=== PATIENT | male | born 1950 | race Caucasian/White ===

== ENCOUNTER → 2017-03-15 | Outpatient (CLI) | payer MEDICARE, BC ==
[2017-03-15 09:25] LABS: Basophils % (A) 0 %; CH 33.4; CHCM 36.4; Eosinophils # (A) 0.2 k/uL (0-0.7); Eosinophils % (A) 2 %; HCT 42.9 % (39.0-53.0); HDW 2.87; Luc # (Auto) 0.12; Luc % (Auto) 2; Lymphocytes # (A) 1.2 k/uL (1.0-4.8); Lymphocytes % (A) 18 %; MCH 32.2 pg (25.0-35.0); MCHC 34.9 g/dL (31.0-37.0); MCV 92.2 fL (80.0-100.0); Mean Platelet Volume 6.2; Monocytes # (A) 0.3 k/uL (0-1.0); Monocytes % (A) 4 %; Neutrophils % (A) 74 %; RBC 4.65 m/uL (4.30-5.90); RDW 12.4 % (11.5-15.5); WBC 6.8 k/uL (3.8-10.6); WBC (Perox) 7.16
[2017-03-15 09:26] LABS: Appearance,Urine Clear (Clear); Bilirubin,Urine Negative (Negative); Glucose,Urine (UA) Negative (Negative); Ketones,Urine Negative (Negative); Leukocyte Esterase,Urine Negative (Negative); Nitrite,Urine Negative (Negative); PH, Urine 5.5 (5.0-8.0); Protein,Urine Trace (Negative); Specific Gravity,Urine 1.014 (1.001-1.035); UA Billing (MACRO vs. MICRO) CHEM; Urobilinogen,Urine <2.0 mg/dL (<2.0)
[2017-03-15 11:58] LABS: ALT 78 U/L (21-72); AST 49 U/L (17-59); Alkaline Phosphatase 81 U/L (38-126); Anion Gap 12 mmol/L; Blood Urea Nitrogen 24 mg/dL (9-20); Calcium 9.5 mg/dL (8.4-10.2); Carbon Dioxide 25 mmol/L (22-30); Chloride 105 mmol/L (98-107); Cholesterol 154 mg/dL (<200); Glucose 115 mg/dL (74-99); HDL Cholesterol 24 mg/dL (40-60); Non-African American GFR(MDRD) >60 (>60 ml/min/1.73 sqM); Potassium 4.3 mmol/L (3.5-5.1); Sodium 142 mmol/L (137-145); Triglycerides 179 mg/dL (<150)
[2017-03-15 11:59] LABS: Hemoglobin A1C 5.4 % (4.2-6.1)
[2017-03-15 12:29] LABS: Prostate Specific Antigen 5.92 ng/mL (0.00-4.00)
== END | disposition home or self-care (01) ==
LOC: LABWHC1 08:06
PROVIDERS: ATTEND Family Medicine
DX: Z00.00 Encounter for general adult medical examination without abnormal findings (principal); E78.5 Hyperlipidemia, unspecified; R97.20 Elevated prostate specific antigen [PSA]
CPT/HCPCS: 36415; 80053; 80061; 81003; 83036; 84153; 85025

== ENCOUNTER → 2018-03-16 | Outpatient (CLI) | payer MEDICARE, BC ==
[2018-03-16 08:03] LABS: HCT 41.2 % (39.0-53.0); HGB 14.4 gm/dL (13.0-17.5); MCV 91.5 fL (80.0-100.0); Mean Platelet Volume 6.6; Platelet Count 213 k/uL (150-450); RBC 4.51 m/uL (4.30-5.90); RDW 12.6 % (11.5-15.5)
[2018-03-16 11:45] LABS: Albumin 4.2 g/dL (3.5-5.0); Calcium 9.3 mg/dL (8.4-10.2); Potassium 4.9 mmol/L (3.5-5.1); Total Bilirubin 0.9 mg/dL (0.2-1.3); Total Protein 6.9 g/dL (6.3-8.2)
[2018-03-16 12:14] LABS: Prostate Specific Antigen 7.56 ng/mL (0.00-4.00)
[2018-03-16 19:06] LABS: Hemoglobin A1C 5.2 % (4.0-6.0)
== END | disposition home or self-care (01) ==
LOC: LABWHC1 07:01
PROVIDERS: ATTEND Family Medicine
DX: Z00.00 Encounter for general adult medical examination without abnormal findings (principal)
CPT/HCPCS: 36415; 80053; 80061; 83036; 84153; 85027

== ENCOUNTER → 2018-03-28 | Outpatient (CLI) | payer MEDICARE, BC ==
--- NOTE | 2018-03-28 18:34 | US ---
EXAM MEASUREMENTS: RIGHT: Peak Systolic Velocity (PSV) cm/sec ----- Right CCA: 82.0 ----- Right ICA: 82.9 ----- Right ECA: 96.2 ICA/CCA ratio: 1.0 RIGHT: End Diastole cm/sec ----- Right CCA: 18.6 ----- Right ICA: 25.2 ----- Right ECA: 13.8 LEFT: Peak Systolic Velocity (PSV) cm/sec ----- Left CCA: 93.4 ----- Left ICA: 105.6 ----- Left ECA: 117.4 ICA/CCA ratio: 1.1 LEFT: End Diastole cm/sec ----- Left CCA: 26.1 ----- Left ICA: 32.7 ----- Left ECA: 9.8 VERTEBRALS (direction of flow): Right Vertebral: antegrade Left Vertebral: antegrade Criteria for Assigning % of Stenosis / Diameter reduction (Estimation based on the indirect measurements of the internal carotid artery velocities (ICA PSV). 1. Normal (no stenosis)=ICA PSV < 125 cm/s: ratio < 2.0: ICA EDV<40 cm/s. 2. Less than 50% stenosis=ICA PSV < 125 cm/s: ratio < 2.0: ICA EDV<40 cm/s. 3. 50 to 69% stenosis=ICA PSV of 125 to 230 cm/s: ration 2.0 ? 4.0: ICA EDV 40-100 cm/s. 4. Greater than 70% stenosis to near occlusion= ICA PSV > 230 cm/s: ratio > 4.0: ICA EDV > 100 cm/s. 5. Near occlusion= ICA PSV velocities may be low or undetectable: variable ratio and ICA EDV. 6. Total occlusion=unable to detect flow. PATIENT HISTORY: TIA 2 years ago with left sided weakness PREVIOUS EXAM: no TECH IMPRESSION: Mild plaque bilateral bifurcations. No evidence of significant stenosis RHYTHM: normal Impression There is antegrade flow in the vertebral arteries. The images and measurements suggest less than 25% stenosis in both internal carotid arteries.
== END | disposition home or self-care (01) ==
LOC: RADUSWWP 17:00
PROVIDERS: ATTEND Psychiatry & Neurology Neurology
DX: I65.23 Occlusion and stenosis of bilateral carotid arteries (principal); G45.9 Transient cerebral ischemic attack, unspecified
CPT/HCPCS: 93880

== ENCOUNTER → 2018-07-05 | Outpatient (CLI) | payer MEDICARE, BC | END | disposition home or self-care (01) | LOC: LABWHC1 16:02 | PROVIDERS: ATTEND Internal Medicine Interventional Cardiology | DX: R00.1 Bradycardia, unspecified (principal) | CPT/HCPCS: 36415; 84443 ==

== ENCOUNTER 2018-07-29 10:28 | Emergency (ER) | payer MEDICARE, BC ==
[2018-07-29 10:44] VITALS: TEMP 98.1
[2018-07-29] MEDS ORDERED: SODIUM CHLORIDE 0.9% 1,000 ML IV STA (10:47)
[2018-07-29 10:54] LABS: Glucose,Whole Blood 172 mg/dL (75-99)
--- NOTE | 2018-07-29 10:58 | ED ---
Neuro HPI - General Chief Complaint: Neuro Symptoms/Deficit Stated Complaint: poss stroke Time Seen by Provider: 07/29/18 10:40 Source: patient, family, RN notes reviewed Mode of arrival: wheelchair Limitations: no limitations - History of Present Illness Is the patient presenting with stroke symptoms?: Yes Initial Comments: This is a 68-year-old male with a history of TIA about 3 years ago he has had robotic prostate surgery 5 days ago who states he was having some numbness to his right pinky finger over the past 5 days but this morning was noted to have some trouble with speech his believes he has some right lip drooping and he had trouble walking with his right leg as he seemed to have some evidence of a footdrop. He does state that 3 years ago he had a TIA he believes it was left carotid artery that was involved. He has no trauma no headache no blurry vision he has some difficulty with speech no fevers chills sweats no back or abdominal pain. No other modifying factors - Related Data Home Medications: Home Medications Medication Instructions Recorded Confirmed Acetaminophen Tab [Tylenol] 650 mg PO DAILY 07/29/18 07/29/18 Aspirin [Hale Aspirin EC] 81 mg PO DAILY 07/29/18 07/29/18 Atovaquone/Proguanil HCl [Malarone 1 tab PO DAILY 07/29/18 07/29/18 250-100 mg Tablet] Clindamycin [Cleocin] 150 mg PO DAILY 07/29/18 07/29/18 Clopidogrel [Plavix] 75 mg PO DAILY 07/29/18 07/29/18 Ezetimibe [Zetia] 10 mg PO DAILY 07/29/18 07/29/18 Hydrochlorothiazide 25 mg PO DAILY 07/29/18 07/29/18 Ibuprofen [Motrin] 800 mg PO DAILY 07/29/18 07/29/18 Lisinopril 20 mg PO DAILY 07/29/18 07/29/18 Methocarbamol [Robaxin] 500 mg PO QID 07/29/18 07/29/18 Sennosides [Senokot] 8.6 mg PO DAILY 07/29/18 07/29/18 amLODIPine [Norvasc] 5 mg PO DAILY 07/29/18 07/29/18 oxyCODONE HCL [Roxicodone] 5 mg PO DAILY 07/29/18 07/29/18 Allergies/Adverse Reactions: Allergies Allergy/AdvReac Type Severity Reaction Status Date / Time No Known Allergies Allergy Verified 07/29/18 12:25 Review of Systems ROS Statement: Those systems with pertinent positive or pertinent negative responses have been documented in the HPI. ROS Other: All systems not noted in ROS Statement are negative. General Exam - General Exam Comments Initial Comments: This is a well-developed well-nourished awake alert oriented 3 male Limitations: no limitations General appearance: alert, anxious Head exam: Present: atraumatic, normocephalic, normal inspection Eye exam: Present: normal appearance, PERRL, EOMI. Absent: scleral icterus, conjunctival injection, periorbital swelling ENT exam: Present: mucous membranes moist, other (The patient does demonstrate some flattening of the right nasolabial fold compared to the left side. Forehead is spared) Neck exam: Present: normal inspection, full ROM, other (No stridor JVD or bruits ). Absent: tenderness, meningismus, lymphadenopathy Respiratory exam: Present: normal lung sounds bilaterally. Absent: respiratory distress, wheezes, rales, rhonchi, stridor Cardiovascular Exam: Present: regular rate, normal rhythm, normal heart sounds. Absent: systolic murmur, diastolic murmur, rubs, gallop, clicks GI/Abdominal exam: Present: soft, normal bowel sounds. Absent: distended, tenderness, guarding, rebound, rigid Extremities exam: Present: normal inspection, full ROM, normal capillary refill. Absent: tenderness, pedal edema, joint swelling, calf tenderness Back exam: Present: normal inspection Neurological exam: Present: alert, oriented X3, motor sensory deficit (Slight flattening of the right nasolabial fold slight amount of slurred speech no other physical findings at this time.). Absent: CN II-XII intact Psychiatric exam: Present: normal affect, normal mood Skin exam: Present: warm, dry, intact, normal color. Absent: rash Stroke MDM - Lab Data Result diagrams: 07/29/18 10:45 07/29/18 10:45 Lab Results 07/29/18 07/29/18 07/29/18 Range/Units 10:45 10:45 10:45 WBC 9.4 (3.8-10.6) k/uL RBC 4.48 (4.30-5.90) m/uL Hgb 13.8 (13.0-17.5) gm/dL Hct 42.2 (39.0-53.0) % MCV 94.3 (80.0-100.0) fL MCH 30.9 (25.0-35.0) pg MCHC 32.8 (31.0-37.0) g/dL RDW 12.4 (11.5-15.5) % Plt Count 361 (150-450) k/uL Neutrophils % 77 % Lymphocytes % 13 % Monocytes % 6 % Eosinophils % 3 % Basophils % 0 % Neutrophils # 7.2 (1.3-7.7) k/uL Lymphocytes # 1.2 (1.0-4.8) k/uL Monocytes # 0.6 (0-1.0) k/uL Eosinophils # 0.2 (0-0.7) k/uL Basophils # 0.0 (0-0.2) k/uL PT (9.0-12.0) sec INR (<1.2) APTT (22.0-30.0) sec Sodium 138 (137-145) mmol/L Potassium 4.0 (3.5-5.1) mmol/L Chloride 101 (98-107) mmol/L Carbon Dioxide 26 (22-30) mmol/L Anion Gap 11 mmol/L BUN 15 (9-20) mg/dL Creatinine 1.14 (0.66-1.25) mg/dL Est GFR (CKD-EPI)AfAm 76 (>60 ml/min/1.73 sqM) Est GFR (CKD-EPI)NonAf 66 (>60 ml/min/1.73 sqM) Glucose 184 H (74-99) mg/dL POC Glucose (mg/dL) (75-99) mg/dL POC Glu [employer] Calcium 9.7 (8.4-10.2) mg/dL Magnesium (1.6-2.3) mg/dL Total Bilirubin 1.1 (0.2-1.3) mg/dL AST 42 (17-59) U/L ALT 62 (21-72) U/L Alkaline Phosphatase 83 (38-126) U/L Total Creatine Kinase 116 (55-170) U/L CK-MB (CK-2) 1.8 (0.0-2.4) ng/mL CK-MB (CK-2) Rel Index 1.6 Troponin I <0.012 (0.000-0.034) ng/mL Total Protein 6.9 (6.3-8.2) g/dL Albumin 4.0 (3.5-5.0) g/dL 07/29/18 07/29/18 07/29/18 Range/Units 10:45 10:45 10:47 WBC (3.8-10.6) k/uL RBC (4.30-5.90) m/uL Hgb (13.0-17.5) gm/dL Hct (39.0-53.0) % MCV (80.0-100.0) fL MCH (25.0-35.0) pg MCHC (31.0-37.0) g/dL RDW (11.5-15.5) % Plt Count (150-450) k/uL Neutrophils % % Lymphocytes % % Monocytes % % Eosinophils % % Basophils % % Neutrophils # (1.3-7.7) k/uL Lymphocytes # (1.0-4.8) k/uL Monocytes # (0-1.0) k/uL Eosinophils # (0-0.7) k/uL Basophils # (0-0.2) k/uL PT 11.1 (9.0-12.0) sec INR 1.1 (<1.2) APTT 23.2 (22.0-30.0) sec Sodium (137-145) mmol/L Potassium (3.5-5.1) mmol/L Chloride (98-107) mmol/L Carbon Dioxide (22-30) mmol/L Anion Gap mmol/L BUN (9-20) mg/dL Creatinine (0.66-1.25) mg/dL Est GFR (CKD-EPI)AfAm (>60 ml/min/1.73 sqM) Est GFR (CKD-EPI)NonAf (>60 ml/min/1.73 sqM) Glucose (74-99) mg/dL POC Glucose (mg/dL) 172 H (75-99) mg/dL POC Glu [facility] [employer] [facility] Calcium (8.4-10.2) mg/dL Magnesium 2.1 (1.6-2.3) mg/dL Total Bilirubin (0.2-1.3) mg/dL AST (17-59) U/L ALT (21-72) U/L Alkaline Phosphatase (38-126) U/L Total Creatine Kinase (55-170) U/L CK-MB (CK-2) (0.0-2.4) ng/mL CK-MB (CK-2) Rel Index Troponin I (0.000-0.034) ng/mL Total Protein (6.3-8.2) g/dL Albumin (3.5-5.0) g/dL - NIH Stroke Scale 1a. Level of Consciousness: (0) alert 1b. LOC Questions: (0) answers correctly 1c. LOC Commands: (0) performs tasks correctly 2. Best Gaze: (0) normal 3. Visual: (0) no visual loss 4. Facial Palsy: (1) minor paralysis 5a. Motor Arm Left: (0) no drift 5b. Motor Arm Right: (0) no drift 6a. Motor Leg Left: (0) no drift 6b. Motor Leg Right: (0) no drift 7. Limb Ataxia: (0) absent 8. Sensory: (0) normal 9. Best Language: (0) no aphasia 10. Dysarthria: (1) mild/moderate dysarthria 11. Extinction/Inattention: (0) no abnormality - Thrombolytic Inclusion/Exclusion Thrombolytic Inclusion Criteria: Ischemic Stroke Onset< 3h Thrombolytic Contraindications: Rapidly Improving s/s - Medical Decision Making Initial CT showed no definite findings of obstruction. Patient did have recurrent symptoms however and was a candidate for TPA after discussion with several physicians hence the delay in TPA administration. Patient will be transferred to [facility]. I did discuss the findings with the patient and his family members or present. - EKG Data -: EKG Interpreted by Me EKG shows normal: sinus rhythm (Sinus rhythm a rate 73. Interval 1:30 QRS duration 84 QT since QTC 392/431 this raises be a normal looking EKG was compared with EKG done on 07/05/18 which patient brought with him.) Past Medical History Past Medical History: CVA/TIA, Hyperlipidemia, Hypertension History of Any Multi-Drug Resistant Organisms: None Reported Past Surgical History: Prostate Surgery Past Psychological History: No Psychological Hx Reported Smoking Status: Never smoker Past Alcohol Use History: None Reported Past Drug Use History: None Reported Course Vital Signs 07/29/18 07/29/18 07/29/18 10:30 10:35 10:45 Temperature 98.1 F Pulse Rate 87 88 Respiratory 18 10 L Rate Blood Pressure 199/130 169/118 O2 Sat by Pulse 98 98 98 Oximetry 07/29/18 07/29/18 07/29/18 10:50 11:06 11:15 Temperature Pulse Rate 73 73 Respiratory 80 H 20 7 L Rate Blood Pressure 181/109 169/91 168/94 O2 Sat by Pulse 97 99 99 Oximetry 07/29/18 07/29/18 07/29/18 11:30 11:45 12:00 Temperature Pulse Rate 77 74 80 Respiratory 16 14 12 Rate Blood Pressure 167/110 158/109 161/97 O2 Sat by Pulse 97 98 Oximetry 07/29/18 12:15 Temperature Pulse Rate 74 Respiratory 21 Rate Blood Pressure 169/93 O2 Sat by Pulse Oximetry - Reevaluation(s) Reevaluation #1: 07/29/18 11:30 Reevaluation the patient upon his return from CAT scan reveals improvement of the facial asymmetry and speech. Reevaluation #2: 07/29/18 11:31 I did discuss the case with Dr. Zarate. The patient is not a candidate for intervention at this time the computed tomography scan shows no obvious occlusion. Reevaluation #3: 07/29/18 12:51 Reexamination patient he had recurring symptoms which included dysarthria as well as diminished right upper extremity movement patient is dominant right handed. Additionally he has recurrent foot drop. Dr. Zarate was read consult that he did reexamine the patient. The patient is a candidate for TPA however the patient did have a surgical procedure 5 days ago at [facility]. This did require contacting the surgeons. Reevaluation #4: 07/29/18 12:51 I did discuss the case with Dr. Waterman on 2 occasions who did consult the attending covering this weekend Dr. Brantley the patient can get TPA in light of the current circumstances the patient is urine is clear no evidence of any bleeding. I did rediscuss the case with Dr. Zarate patient will be started on TPA. There is a delay in giving due to all of the extraneous issues and timing thereof. Patient will be transferred to [facility] for further evaluation. I did discuss the transfer with the ER physician who is agreed to accept the patient transfer. Critical Care Time Critical Care Time: Yes Critical Care Time: Critical care time of 49 minutes which included initial presentation with history physical labs x-rays multiple reevaluation of the patient to response to therapy and change in symptoms. Discussion with multiple physicians discussion with the receiving facility discussed with paramedics. Review of all labs and CTs and documentation of the above. Disposition Clinical Impression: Cerebrovascular accident Disposition: OTHER INSTITUTION NOT DEFINED Condition: Serious Is patient prescribed a controlled substance at d/c from ED?: No Referrals: Nonstaff,Physician [Primary Care Provider] - 1-2 days - Out of Hospital Transfer - Req. Specs Out of Hospital Transfer - Requested Specifics: Other Emergency Center
--- NOTE | 2018-07-29 11:14 | CT ---
EXAMINATION TYPE: CT brain wo con for TPA DATE OF EXAM: 07/29/2018 COMPARISON: NONE HISTORY: CODE STROKE CT DLP: 1504.7 mGycm Automated exposure control for dose reduction was used. FINDINGS: Central structures are midline. There is no evidence of hydrocephalus. No acute focal lesion, mass ef fect or midline shift is seen. I do not see evidence of intracranial blood. There is some periventric ular white matter lucency compatible with chronic white matter ischemic change. Visualized portions of the paranasal sinuses and mastoids are clear. The bony calvarium is intact. IMPRESSION: 1. NO ACUTE INTRACRANIAL ABNORMALITY. 2. MILD DEGENERATIVE CHANGE.
[2018-07-29 11:18] LABS: Calcium 9.7 mg/dL (8.4-10.2); Total Bilirubin 1.1 mg/dL (0.2-1.3); Total Protein 6.9 g/dL (6.3-8.2)
[2018-07-29 11:20] LABS: Basophils % (A) 0 %; Eosinophils # (A) 0.2 k/uL (0-0.7); Eosinophils % (A) 3 %; HCT 42.2 % (39.0-53.0); HGB 13.8 gm/dL (13.0-17.5); Lymphocytes # (A) 1.2 k/uL (1.0-4.8); Lymphocytes % (A) 13 %; MCH 30.9 pg (25.0-35.0); MCHC 32.8 g/dL (31.0-37.0); MCV 94.3 fL (80.0-100.0); Monocytes # (A) 0.6 k/uL (0-1.0); Monocytes % (A) 6 %; Neutrophils # (A) 7.2 k/uL (1.3-7.7); Neutrophils % (A) 77 %; Platelet Count 361 k/uL (150-450); RBC 4.48 m/uL (4.30-5.90); RDW 12.4 % (11.5-15.5); WBC 9.4 k/uL (3.8-10.6)
[2018-07-29 11:21] LABS: INR 1.1 (<1.2); Partial Thromboplastin Time 23.2 sec (22.0-30.0); Prothrombin Time 11.1 sec (9.0-12.0)
[2018-07-29 11:35] LABS: Creatine Kinase 116 U/L (55-170)
[2018-07-29 11:48] LABS: Creatine Kinase MB 1.8 ng/mL (0.0-2.4); Troponin I <0.012 ng/mL (0.000-0.034)
--- NOTE | 2018-07-29 12:07 | CT ---
EXAMINATION TYPE: CT angio head neck DATE OF EXAM: 07/29/2018 HISTORY: CODE STROKE COMPARISON: None. CT DLP: 386.3 mGycm. Automated Exposure Control for Dose Reduction was Utilized. TECHNIQUE: CTA scan of the neck is performed with IV Contrast, patient injected with 65 mL of Isovue 370, axial images are obtained, coronal and sagittal reformatted images are reviewed. Three-D recons tructed images are created on an independent workstation and reviewed. FINDINGS: Visualized portions of the lungs are clear. Prevertebral soft tissues are normal. Visualized portions of the paranasal sinuses and mastoids are clear. There is some loss of the normal cervical lordosis. Vertebral body height and alignment are maintaine d. Atlantoaxial relationships are normal. There is degenerative disc disease and hypertrophic spondyl osis present at C3-4, C4-5, C5-6 and C6-7. There is uncovertebral joint disease present at these leve ls. There is facet arthropathy on the right at C2-3 and C3-4. No definite protrusion is seen. The left vertebral artery is dominant. There is minimal atheromatous plaque seen at the carotid bulbs bilaterally. There is no significant s tenosis in either carotid system. There is an occlusion of the M1 segment of the middle cerebral artery on the right. There is collater al flow in both anterior cerebral arteries are patent. The insular vessels appear to be patent. The p osterior circulation is unremarkable. IMPRESSION: 1. NO SIGNIFICANT CAROTID STENOSIS. 2. 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
[2018-07-29] MEDS ORDERED: tPA (Alteplase) PER PHARMACY 1 EACH MISC MISCELLANE PRN (12:28)
[2018-07-29] MEDS ORDERED: ALTEPLASE BOLUS 8 MG in EMPTY SYRINGE 1 SYR IV STA (12:35)
[2018-07-29] MEDS ORDERED: ALTEPLASE IV STA (12:35)
--- NOTE | 2018-07-29 13:04 | XR ---
EXAMINATION TYPE: XR chest 1V DATE OF EXAM: 07/29/2018 HISTORY: altered mental status. REFERENCE: NONE. FINDINGS: The lungs are clear. Pleural space are clear. The heart is not enlarged. IMPRESSION: NO ACTIVE INTRATHORACIC DISEASE.
[2018-07-29 13:08] VITALS: BP 165/93; PULSE 74; RESP 21
== END 2018-07-29 13:05 | disposition other institution (70) ==
LOC: EC 10:28
DX: I63.9 Cerebral infarction, unspecified (principal); R29.702 NIHSS score 2; M21.379 Foot drop, unspecified foot; I10 Essential (primary) hypertension; E78.5 Hyperlipidemia, unspecified; Z79.82 Long term (current) use of aspirin; Z79.02 Long term (current) use of antithrombotics/antiplatelets; Z79.899 Other long term (current) drug therapy
CPT/HCPCS: 99291 ×2; 37195 ×2; 36415; 93005; 80053; 82550; 82553; 83735; 84484; 85025; 85610; 85730; 71045; 70496; 70450; 70498; J2997; Q9967

== ENCOUNTER → 2018-10-17 | Outpatient (CLI) | payer MEDICARE, BC | END | disposition home or self-care (01) | LOC: LABWHC1 10:35 | PROVIDERS: ATTEND Psychiatry & Neurology Neurology | DX: Z01.812 Encounter for preprocedural laboratory examination (principal) | CPT/HCPCS: 36415; 82565; 84520 ==

== ENCOUNTER → 2019-04-03 | Outpatient (CLI) | payer MEDICARE, BC ==
[2019-04-03 09:16] LABS: Basophils # (A) 0.1 k/uL (0-0.2); Basophils % (A) 1 %; Eosinophils # (A) 0.2 k/uL (0-0.7); Eosinophils % (A) 3 %; HCT 43.2 % (39.0-53.0); HGB 14.1 gm/dL (13.0-17.5); Lymphocytes # (A) 1.6 k/uL (1.0-4.8); Lymphocytes % (A) 23 %; MCHC 32.8 g/dL (31.0-37.0); MCV 91.7 fL (80.0-100.0); Monocytes # (A) 0.4 k/uL (0-1.0); Monocytes % (A) 5 %; Neutrophils # (A) 4.6 k/uL (1.3-7.7); Neutrophils % (A) 66 %; Platelet Count 223 k/uL (150-450); RBC 4.71 m/uL (4.30-5.90); RDW 13.7 % (11.5-15.5)
[2019-04-03 18:01] LABS: African American GFR (CKD) 53.9 (60.0-200.0); Albumin 4.4 g/dL (3.80-4.90); Albumin/Globulin Ratio 2.32 (1.60-3.17); Anion Gap 7.8 mmol/L (4.00-12.00); BUN/Creat Ratio 22.67 Ratio (12.00-20.00); Calcium 9.3 mg/dL (8.7-10.3); Carbon Dioxide 27.2 mmol/L (21.6-31.8); Globulin 1.9 g/dL (1.6-3.3); LDL Cholesterol,Calculated 43.8 mg/dL (0.0-131.0); Potassium 4.7 mmol/L (3.5-5.5); Total Bilirubin 0.9 mg/dL (0.2-1.2); Total Protein 6.3 g/dL (6.2-8.2); VLDL Calculation 55.2 mg/dL (5.00-40.00)
== END | disposition home or self-care (01) ==
LOC: LABWHC1 08:33
DX: Z00.00 Encounter for general adult medical examination without abnormal findings (principal); E78.5 Hyperlipidemia, unspecified; I10 Essential (primary) hypertension; C61 Malignant neoplasm of prostate; Z68.30 Body mass index [BMI] 30.0-30.9, adult
CPT/HCPCS: 36415; 80053; 80061; 85025

== ENCOUNTER → 2019-04-16 | Outpatient (CLI) | payer MEDICARE, BC ==
--- NOTE | 2019-04-16 14:03 | US ---
EXAMINATION TYPE: US abdomen complete DATE OF EXAM: 04/16/2019 COMPARISON: NONE CLINICAL HISTORY: R94.5 Abnormal results of liver function studies. EXAM MEASUREMENTS: Liver Length: 14.4 cm Gallbladder Wall: 0.2 cm CBD: 0.3 cm Spleen: 11.4 cm Right Kidney: 10.5 x 5.9 x 4.5 cm Left Kidney: 10.8 x 5.3 x 4.9 cm Pancreas: partially obscured by overlying bowel gas, portions visualized wnl Liver: wnl Gallbladder: wall irregularity vs phrygian cap, does not have the normal appearance of phrygian cap Evidence for sonographic Zhu's sign: no CBD: small portions visualized due to overlying bowel gas Spleen: wnl Right Kidney: cyst noted measuring 0.6 x 0.6 x 0.6cm Left Kidney: wnl Upper IVC: wnl Abd Aorta: proximal and bifurcation obscured by bowel gas otherwise wnl The liver is homogenous. The intrahepatic portion of the IVC and proximal abdominal aorta are within normal limits. There is no evidence of cholelithiasis. Common bile duct is unremarkable. The visu alized portions of the pancreas are homogenous. The spleen is unremarkable. Kidneys are symmetric a nd free of hydronephrosis. No solid renal lesions are seen. 6 mm cyst right kidney. IMPRESSION: Focal wall thickening in the region of the gallbladder. Correlate CT.
== END | disposition home or self-care (01) ==
LOC: RADUSWWP 07:03
PROVIDERS: ATTEND Family Medicine
DX: K82.8 Other specified diseases of gallbladder (principal)
CPT/HCPCS: 76700

== ENCOUNTER → 2019-04-27 | Outpatient (CLI) | payer MEDICARE, BC ==
[2019-04-27 19:29] LABS: African American GFR (CKD) 58.6 (60.0-200.0); Albumin 4.2 g/dL (3.80-4.90); Anion Gap 12.3 mmol/L (4.00-12.00); Calcium 9.2 mg/dL (8.7-10.3); Carbon Dioxide 19.7 mmol/L (21.6-31.8); Phosphorus 3.5 mg/dL (2.4-5.1); Potassium 4.5 mmol/L (3.5-5.5)
== END | disposition home or self-care (01) ==
LOC: LABWHC1 08:53
PROVIDERS: ATTEND Nurse Practitioner Adult Health
DX: K82.8 Other specified diseases of gallbladder (principal); I12.9 Hypertensive chronic kidney disease with stage 1 through stage 4 chronic kidney disease, or unspecified chronic kidney disease; N18.9 Chronic kidney disease, unspecified
CPT/HCPCS: 36415; 80069

== ENCOUNTER → 2019-05-04 | Outpatient (CLI) | payer MEDICARE, BC ==
--- NOTE | 2019-05-04 11:41 | CT ---
EXAMINATION TYPE: CT abdomen wo/w con DATE OF EXAM: 05/04/2019 COMPARISON: CT abdomen 02/10/2009. US abdomen 04/16/2019. HISTORY: thickening of wall of gallbladder; history of prostate cancer. CT DLP: 1652.8 mGycm, Automated Exposure Control for Dose Reduction was Utilized. CONTRAST: CT scan of the abdomen is performed without oral but without and with IV Contrast, patient injected w ith 80 mL of Isovue 300. FINDINGS: LUNG BASES: No significant abnormality is appreciated. LIVER/GB: No CT dense intraluminal gallstones are seen. There is slight focal thickening of the right inferior lateral gallbladder wall, this can be better evaluated with ultrasound or MRI if desired. N o surrounding fluid or fat stranding is present. PANCREAS: No significant abnormality is seen. SPLEEN: No significant abnormality is seen. ADRENALS: No significant abnormality is seen. KIDNEYS: No renal stones on noncontrast CT. There is symmetric cortical medullary uptake and excreti on without hydronephrosis seen bilaterally BOWEL: Incidental normal-appearing appendix medially from cecum in the right upper pelvis. No suspici ous small large bowel dilatation. A few diverticula in the distal left colon. LYMPH NODES: No greater than 1cm abdominal lymph nodes are appreciated. OSSEOUS STRUCTURES: No significant abnormality is seen. OTHER: No significant additional abnormality is seen. IMPRESSION: As above.
== END | disposition home or self-care (01) ==
LOC: RADCTMAIN 09:56
PROVIDERS: ATTEND Family Medicine
DX: K57.30 Diverticulosis of large intestine without perforation or abscess without bleeding (principal); K82.8 Other specified diseases of gallbladder
CPT/HCPCS: 74170; Q9967

== ENCOUNTER → 2020-04-17 | Outpatient (CLI) | payer MEDICARE, BC ==
--- NOTE | 2020-04-17 11:06 | US ---
EXAMINATION TYPE: US abdomen complete DATE OF EXAM: 04/17/2020 COMPARISON: 04/16/2019 CLINICAL HISTORY: R10.11 ABD PAIN. elevated liver enzymes EXAM MEASUREMENTS: Liver Length: 18.3 cm Gallbladder Wall: .3 cm CBD: .4 cm Spleen: 11.1 cm Right Kidney: 11.1 x 5.9 x 5.3 cm Left Kidney: 10.4 x 5.2 x 4.4 cm Pancreas: Obscured by bowel gas Liver: Increased attenuation Gallbladder: No stones seen Evidence for sonographic Zhu's sign: No CBD: wnl Spleen: wnl Right Kidney: Hypoechoic area mid .9 x .8 x .8 cm. Left Kidney: wnl Upper IVC: wnl Abd Aorta: wnl IMPRESSION: 1. Findings involving the liver suggestive of hepatic steatosis or hepatitis correlate clinically. 2. Indeterminate right renal lesion too small to characterize.
== END | disposition home or self-care (01) ==
LOC: RADUSWWP 10:04
PROVIDERS: ATTEND Family Medicine
DX: R10.11 Right upper quadrant pain (principal); R94.5 Abnormal results of liver function studies
CPT/HCPCS: 76700

== ENCOUNTER → 2022-06-18 | Outpatient (CLI) | payer MEDICARE, BC ==
--- NOTE | 2022-06-18 08:07 | US ---
EXAMINATION TYPE: US carotid duplex BILAT DATE OF EXAM: 06/18/2022 COMPARISON: US 2018 CLINICAL HISTORY: I63.312 CEREBROVASCULAR ACCIDENT DUE TO THROMBOSIS. TECHNIQUE: Carotid duplex ultrasound examination. Indirect Doppler criteria was utilized. FINDINGS: EXAM MEASUREMENTS: RIGHT: Peak Systolic Velocity (PSV) cm/sec ----- Right CCA: 82.0 ----- Right ICA: 77.9 ----- Right ECA: 109.1 ICA/CCA ratio: 0.9 RIGHT: End Diastole cm/sec ----- Right CCA: 14.9 ----- Right ICA: 23.8 ----- Right ECA: 14.6 LEFT: Peak Systolic Velocity (PSV) cm/sec ----- Left CCA: 77.0 ----- Left ICA: 93.3 ----- Left ECA: 117.9 ICA/CCA ratio: 1.2 LEFT: End Diastole cm/sec ----- Left CCA: 18.0 ----- Left ICA: 31.9 ----- Left ECA: 21.1 VERTEBRALS (direction of flow): Right Vertebral: Antegrade Left Vertebral: Antegrade Rhythm: Normal No significant stenosis IMPRESSION: No hemodynamically significant stenosis within both visualized carotid arterial systems. Criteria for Assigning % of Stenosis / Diameter reduction (Estimation based on the indirect measurements of the internal carotid artery velocities (ICA PSV). 1. Normal (no stenosis)=ICA PSV < 125 cm/s: ratio < 2.0: ICA EDV<40 cm/s. 2. Less than 50% stenosis=ICA PSV < 125 cm/s: ratio < 2.0: ICA EDV<40 cm/s. 3. 50 to 69% stenosis=ICA PSV of 125 to 230 cm/s: ration 2.0 ? 4.0: ICA EDV 40-100 cm/s. 4. Greater than 70% stenosis to near occlusion= ICA PSV > 230 cm/s: ratio > 4.0: ICA EDV > 100 cm/s. 5. Near occlusion= ICA PSV velocities may be low or undetectable: variable ratio and ICA EDV. 6. Total occlusion=unable to detect flow.
--- NOTE | 2022-06-18 10:31 | CA ---
Transthoracic Echo Report Name: Johnie Granda Age: 72 Gender: M : 1950 Exam Date: 06/18/2022 07:58 Exam Location: [facility] Ht (in): 68 Wt (lb): 200 Ordering Physician: Priya Welsh MD Attending/Referring Phys: Mak Avilez MD ([id number]) Director Of Publications Adriana Angela RDCS Procedure CPT: Indications: I63.312 CVA Cardiac Hx: Technical Quality: Fair Contrast 1: Total Dose (mL): Contrast 2: Total Dose (mL): MEASUREMENTS (Male / Female) Normal Values 2D ECHO LV Diastolic Diameter PLAX 5.2 cm 4.2 - 5.9 / 3.9 - 5.3 cm LV Systolic Diameter PLAX 3.0 cm IVS Diastolic Thickness 1.3 cm 0.6 - 1.0 / 0.6 - 0.9 cm LVPW Diastolic Thickness 1.3 cm 0.6 - 1.0 / 0.6 - 0.9 cm LV Relative Wall Thickness 0.5 RV Internal Dim ED PLAX 3.8 cm LA Systolic Diameter LX 3.5 cm 3.0 - 4.0 / 2.7 - 3.8 cm LA Volume 53.0 cm??? 18 - 58 / 22 - 52 cm??? M-MODE Aortic Root Diameter MM 3.6 cm MV E Point Septal Separation 0.9 cm AV Cusp Separation MM 2.2 cm DOPPLER AV Peak Velocity 200.0 cm/s AV Peak Gradient 16.0 mmHg AV Mean Velocity 121.8 cm/s AV Mean Gradient 7.0 mmHg AV Velocity Time Integral 39.3 cm MV Area PHT 3.0 cm??? Mitral E Point Velocity 94.9 cm/s Mitral A Point Velocity 114.2 cm/s Mitral E to A Ratio 0.8 MV Deceleration Time 252.6 ms MV E' Velocity 7.6 cm/s Mitral E to MV E' Ratio 12.4 TR Peak Velocity 264.4 cm/s TR Peak Gradient 28.0 mmHg Right Ventricular Systolic Press 32.3 mmHg FINDINGS Left Ventricle Left ventricular ejection fraction is estimated at 60-65 %. Left ventricular cavity size normal. Mild concentric left ventricular hypertrophy. Right Ventricle Moderate right ventricular dilatation. Mild pulmonary hypertension. Right Atrium Normal right atrial size. Left Atrium Normal left atrial size. No evidence for an atrial septal defect. Mitral Valve Structurally normal mitral valve. No mitral stenosis, regurgitation or prolapse. Aortic Valve Trileaflet aortic valve. No aortic valve stenosis or regurgitation. Tricuspid Valve Mild tricuspid regurgitation. Pulmonic Valve Structurally normal pulmonic valve. Pericardium Normal pericardium. No pericardial effusion. Aorta Normal size aortic root and proximal ascending aorta. CONCLUSIONS Left ventricular systolic function is normal Moderate right ventricular dilatation with mild pulmonary hypertension Previewed by: Dr. Ronaldo Flores MD (Electronically Signed) Final Date: 18 June 2022 10:30
== END | disposition home or self-care (01) ==
LOC: RADUSWWP 07:22
PROVIDERS: ATTEND Internal Medicine
DX: I63.312 Cerebral infarction due to thrombosis of left middle cerebral artery (principal)
CPT/HCPCS: 93306; 93880

== ENCOUNTER 2024-02-29 11:30 | Emergency (ER) | payer MEDICARE, BC ==
[2024-02-29 11:43] VITALS: RESP 18
--- NOTE | 2024-02-29 11:59 | ED ---
Syncope HPI - General Source: patient, RN notes reviewed Mode of arrival: ambulatory Limitations: no limitations <Li Maria - Last Filed: 02/29/24 11:58> - General Source: RN notes reviewed <Eva Michael - Last Filed: 02/29/24 17:06> - General Chief Complaint: Syncope Stated Complaint: Fall, on blood thinners Time Seen by Provider: 02/29/24 11:58 - History of Present Illness Initial Comments: Quick Note: This is a 74-year-old male who presents to the emergency department for a possible syncopal episode. States that he was walking around his house this morning around 7:45 AM. The next thing he remembers is waking up on the floor. Believes that he probably hit his head. Unsure if he just fell or had a syncopal episode. Denies any chest pain or shortness of breath. Denies any headaches or any other injuries. (Li Maria) 74-year-old male presenting to the ER for possible syncopal episode. States he got out of bed this morning and was walking in his bedroom around 7:45 AM. He remembers waking up on the floor. He believes he may have either passed out or fallen. The fall was unwitnessed. Denies any symptoms at this time such as chest pain, shortness of breath, headache, known injuries. He takes Plavix. This never happened before. He reports he started a low-carb diet 2 days ago. (Eva Michael) - Related Data Home Medications Medication Instructions Recorded Confirmed Acetaminophen Tab [Tylenol] 650 mg PO DAILY 07/29/18 07/29/18 Aspirin [Sac Aspirin EC] 81 mg PO DAILY 07/29/18 07/29/18 Atovaquone/Proguanil HCl [Malarone 1 tab PO DAILY 07/29/18 07/29/18 250-100 mg Tablet] Clindamycin [Cleocin] 150 mg PO DAILY 07/29/18 07/29/18 Clopidogrel [Plavix] 75 mg PO DAILY 07/29/18 07/29/18 Ezetimibe [Zetia] 10 mg PO DAILY 07/29/18 07/29/18 Ibuprofen [Motrin] 800 mg PO DAILY 07/29/18 07/29/18 Sennosides [Senokot] 8.6 mg PO DAILY 07/29/18 07/29/18 amLODIPine [Norvasc] 5 mg PO DAILY 07/29/18 07/29/18 hydroCHLOROthiazide 25 mg PO DAILY 07/29/18 07/29/18 lisinopriL 20 mg PO DAILY 07/29/18 07/29/18 methocarbamoL [Robaxin] 500 mg PO QID 07/29/18 07/29/18 oxyCODONE HCL [Roxicodone] 5 mg PO DAILY 07/29/18 07/29/18 Allergies Allergy/AdvReac Type Severity Reaction Status Date / Time No Known Allergies Allergy Verified 07/29/18 12:25 Review of Systems ROS Other: All systems not noted in ROS Statement are negative. <Li Maria - Last Filed: 02/29/24 11:58> ROS Other: All systems not noted in ROS Statement are negative. <Eva Michael - Last Filed: 02/29/24 17:06> ROS Statement: Those systems with pertinent positive or pertinent negative responses have been documented in the HPI. Past Medical History Past Medical History: CVA/TIA, Hyperlipidemia, Hypertension History of Any Multi-Drug Resistant Organisms: None Reported Past Surgical History: Prostate Surgery Past Psychological History: No Psychological Hx Reported Past Alcohol Use History: None Reported Past Drug Use History: None Reported <Li Maria - Last Filed: 02/29/24 11:58> General Exam Limitations: no limitations <Li Maria - Last Filed: 02/29/24 11:58> General appearance: alert, in no apparent distress Head exam: Present: atraumatic, normocephalic, normal inspection Eye exam: Present: normal appearance, PERRL, EOMI. Absent: scleral icterus, conjunctival injection, periorbital swelling ENT exam: Present: normal exam, mucous membranes moist Neck exam: Present: normal inspection. Absent: tenderness, meningismus, lymphadenopathy Respiratory exam: Present: normal lung sounds bilaterally. Absent: respiratory distress, wheezes, rales, rhonchi, stridor Cardiovascular Exam: Present: regular rate, normal rhythm, normal heart sounds. Absent: systolic murmur, diastolic murmur, rubs, gallop, clicks GI/Abdominal exam: Present: soft, normal bowel sounds. Absent: distended, tenderness, guarding, rebound, rigid Extremities exam: Present: normal inspection, full ROM, normal capillary refill. Absent: tenderness, pedal edema, joint swelling, calf tenderness Back exam: Present: normal inspection Neurological exam: Present: alert, oriented X3, CN II-XII intact Psychiatric exam: Present: normal affect, normal mood Skin exam: Present: warm, dry, intact, normal color. Absent: rash <Eva Michael - Last Filed: 02/29/24 17:06> - General Exam Comments Initial Comments: Visual Physical Exam Vital signs reviewed General: Well-appearing, nontoxic, no acute distress. Head: Normocephalic, atraumatic Eyes: PERRLA, EOMI ENT: Airway patent Chest: Nonlabored breathing Skin: No visual rash, normal skin tone Neuro: Alert and oriented 3 Musculoskeletal: No gross abnormalities (Li Maria) Course Vital Signs 02/29/24 02/29/24 02/29/24 11:37 15:00 15:02 Temperature 98.2 F 98.4 F Pulse Rate 75 68 Pulse Rate [ 68 Right Pulse Oximetery] Respiratory 18 18 Rate Blood Pressure 155/73 136/76 O2 Sat by Pulse 95 94 L Oximetry 02/29/24 15:38 Temperature 98.1 F Pulse Rate 96 Pulse Rate [ Right Pulse Oximetery] Respiratory 18 Rate Blood Pressure 130/72 O2 Sat by Pulse 96 Oximetry EKG Findings - EKG Results: EKG: interpreted by ERMD (EKG reveals normal sinus rhythm with no ST changes. Ventricular rate 60 bpm, SC interval 143, QRS duration 93, QT/QTc 416/417) <Eva Michael - Last Filed: 02/29/24 17:06> Medical Decision Making <Li Maria - Last Filed: 02/29/24 11:58> - Lab Data Result diagrams: 02/29/24 13:33 02/29/24 13:33 <MichaelEva - Last Filed: 02/29/24 17:06> - Medical Decision Making I performed the QuickNote portion of this chart. Signed Li Maria PA-C. (Li Maria) Was pt. sent in by a medical professional or institution ([facility]ATIN Lopez, CEMETERY WORKER, urgent care, hospital, or assisted...) When possible be specific @ -No Did you speak to anyone other than the patient for history (EMS, parent, family, police, friend...)? What history was obtained from this source @ -Patient's supplemented history Did you review nursing and triage notes (agree or disagree)? Why? @ -I reviewed and agree with nursing and triage notes Were old charts reviewed (outside hosp., previous admission, EMS record, old EKG, old radiological studies, urgent care reports/EKG's, assisted records)? Report findings @ -No old charts were reviewed Differential Diagnosis (chest pain, altered mental status, abdominal pain women, abdominal pain men, vaginal bleeding, weakness, fever, dyspnea, syncope, headache, dizziness, GI bleed, back pain, seizure, CVA, palpatations, mental health, musculoskeletal)? @ -Differential Syncope: Valvular disease, hypertrophic cardiomyopathy, pulmonary embolism, tamponade, tachycardia, bradycardia, [place], hypovolemia, hemorrhage, dissection, anemia, intracranial hemorrhage, seizure, hypoglycemia, carbon monoxide poisoning, this is not meant to be an all-inclusive list. EKG interpreted by me (3pts min.). @ -As above X-rays interpreted by me (1pt min.). @ -Chest x-ray reveals no acute process CT interpreted by me (1pt min.). @ -CT of head reveals no acute intracranial process U/S interpreted by me (1pt. min.). @ -None done What testing was considered but not performed or refused? (CT, X-rays, U/S, labs)? Why? @ -None What meds were considered but not given or refused? Why? @ -None Did you discuss the management of the patient with other professionals (professionals i.e. , PA, CEMETERY WORKER, lab, RT, psych nurse, aids social worker, retail support manager, teacher, plain clothes police officer, case maker)? Give summary @ -No Was smoking cessation discussed for >3mins.? @ -No Was critical care preformed (if so, how long)? @ -No Were there social determinants of health that impacted care today? How? (Homeles sness, low income, unemployed, alcoholism, drug addiction, transportation, low edu. Level, literacy, decrease access to med. care, [facility], rehab)? @ -No Was there de-escalation of care discussed even if they declined (Discuss DNR or withdrawal of care, Hospice)? DNR status @ -No What co-morbidities impacted this encounter? (DM, HTN, Smoking, COPD, CAD, Cancer, CVA, ARF, Chemo, Hep., AIDS, mental health diagnosis, sleep apnea, morbid obesity)? @ -None Was patient admitted / discharged? Hospital course, mention meds given and route, prescriptions, significant lab abnormalities, going to OR and other pertinent info. @ -Patient was discharged. Patient was seen and evaluated for possible syncopal episode this morning. Patient is on Plavix. Fall was not witnessed. Patient is not currently experiencing any symptoms. Vital signs and physical exam are unremarkable. Chest x-ray is negative for acute process, CT scan of head and neck negative for intracranial process. Lab work remarkable for mildly elevated white blood cell count and mildly elevated BUN. Troponin negative. EKG reveals normal sinus rhythm with no ST changes. There are no alarm symptoms upon examination today. Advised close follow-up with PCP in 1 to 3 days and patient and wif show understanding and agreed to plan. Strict return/alarm symptoms discussed with patient and in detail and they show understanding and agreed to plan. Case discussed with my ER attending Dr. Saba. Patient discharged in stable condition. Undiagnosed new problem with uncertain prognosis? @ -No Drug Therapy requiring intensive monitoring for toxicity (Heparin, Nitro, Insulin, Cardizem)? @ -No Were any procedures done? @ -No Diagnosis/symptom? @ -Vasovagal syncope Acute, or Chronic, or Acute on Chronic? @ -Acute Uncomplicated (without systemic symptoms) or Complicated (systemic symptoms)? @ -Uncomplicated Side effects of treatment? @ -No Exacerbation, Progression, or Severe Exacerbation? @ -No Poses a threat to life or bodily function? How? (Chest pain, [place], [place], pneumonia, PE, COPD, DKA, ARF, appy, cholecystitis, CVA, Diverticulitis, Homicidal, Suicidal, threat to staff... and all critical care pts) @ -low likelihood (Eva Michael) - Lab Data Lab Results 02/29/24 02/29/24 02/29/24 Range/Units 13:33 13:33 13:33 WBC 11.7 H (3.8-10.6) k/uL RBC 4.69 (4.30-5.90) m/uL Hgb 15.2 (13.0-17.5) gm/dL Hct 45.0 (39.0-53.0) % MCV 96.0 (80.0-100.0) fL MCH 32.4 (25.0-35.0) pg MCHC 33.7 (31.0-37.0) g/dL RDW 12.1 (11.5-15.5) % Plt Count 247 (150-450) k/uL MPV 6.9 Neutrophils % 85 % Lymphocytes % 9 % Monocytes % 4 % Eosinophils % 0 % Basophils % 0 % Neutrophils # 10.0 H (1.3-7.7) k/uL Lymphocytes # 1.1 (1.0-4.8) k/uL Monocytes # 0.4 (0-1.0) k/uL Eosinophils # 0.0 (0-0.7) k/uL Basophils # 0.0 (0-0.2) k/uL PT 12.5 (10.0-12.5) sec INR 1.2 H (<1.2) APTT 23.7 (22.0-30.0) sec Sodium 138 (137-145) mmol/L Potassium 4.5 (3.5-5.1) mmol/L Chloride 106 (98-107) mmol/L Carbon Dioxide 24 (22-30) mmol/L Anion Gap 8 mmol/L BUN 27 H (9-20) mg/dL Creatinine 1.14 (0.66-1.25) mg/dL Est GFR (CKD-EPI)AfAm 73 (>60 ml/min/1.73 sqM) Est GFR (CKD-EPI)NonAf 63 (>60 ml/min/1.73 sqM) Glucose 165 H (74-99) mg/dL Calcium 9.2 (8.4-10.2) mg/dL Magnesium 2.3 (1.6-2.3) mg/dL Total Bilirubin 1.6 H (0.2-1.3) mg/dL AST 43 (17-59) U/L ALT 48 (4-49) U/L Alkaline Phosphatase 92 (38-126) U/L Troponin I (0.000-0.034) ng/mL Total Protein 7.4 (6.3-8.2) g/dL Albumin 4.7 (3.5-5.0) g/dL 02/29/24 Range/Units 13:33 WBC (3.8-10.6) k/uL RBC (4.30-5.90) m/uL Hgb (13.0-17.5) gm/dL Hct (39.0-53.0) % MCV (80.0-100.0) fL MCH (25.0-35.0) pg MCHC (31.0-37.0) g/dL RDW (11.5-15.5) % Plt Count (150-450) k/uL MPV Neutrophils % % Lymphocytes % % Monocytes % % Eosinophils % % Basophils % % Neutrophils # (1.3-7.7) k/uL Lymphocytes # (1.0-4.8) k/uL Monocytes # (0-1.0) k/uL Eosinophils # (0-0.7) k/uL Basophils # (0-0.2) k/uL PT (10.0-12.5) sec INR (<1.2) APTT (22.0-30.0) sec Sodium (137-145) mmol/L Potassium (3.5-5.1) mmol/L Chloride (98-107) mmol/L Carbon Dioxide (22-30) mmol/L Anion Gap mmol/L BUN (9-20) mg/dL Creatinine (0.66-1.25) mg/dL Est GFR (CKD-EPI)AfAm (>60 ml/min/1.73 sqM) Est GFR (CKD-EPI)NonAf (>60 ml/min/1.73 sqM) Glucose (74-99) mg/dL Calcium (8.4-10.2) mg/dL Magnesium (1.6-2.3) mg/dL Total Bilirubin (0.2-1.3) mg/dL AST (17-59) U/L ALT (4-49) U/L Alkaline Phosphatase (38-126) U/L Troponin I <0.012 (0.000-0.034) ng/mL Total Protein (6.3-8.2) g/dL Albumin (3.5-5.0) g/dL Disposition <Li Maria - Last Filed: 06/05/24 11:58> Is patient prescribed a controlled substance at d/c from ED?: No Time of Disposition: 15:30 <Eva Michael - Last Filed: 02/29/24 17:06> Clinical Impression: Vasovagal syncope Disposition: HOME SELF-CARE Condition: Stable Instructions (If sedation given, give patient instructions): Syncope in Older Adults (ED) Additional Instructions: Please follow-up with PCP as discussed. Please return to the Emergency Depa rtment if symptoms worsen or any other concerns. Referrals: Priya Welsh MD [Primary Care Provider] - 1-2 days
--- NOTE | 2024-02-29 13:27 | XR ---
EXAMINATION TYPE: XR chest 2V DATE OF EXAM: 02/29/2024 COMPARISON: 07/29/2018 HISTORY: 74-year-old male with syncope TECHNIQUE: PA and lateral views FINDINGS: Heart normal size. Atherosclerotic arch calcifications. Mild interstitial prominence is unchanged. No consolidation or pleural effusion. IMPRESSION: Chronic changes. No acute process seen.
--- NOTE | 2024-02-29 13:59 | CT ---
EXAMINATION TYPE: CT brain cspine wo con CT DLP: 1353.9 mGycm, Automated exposure control for dose reduction was used. DATE OF EXAM: 02/29/2024 12:13 PM COMPARISON: None. CLINICAL INDICATION:Male, 74 years old with history of syncope, possible head injury; syncope, with L OC TECHNIQUE: Brain: Multiple axial CT images of the brain were obtained without IV contrast. Cspine: Axial CT images from the skull base to the inferior aspect of T2 we obtained without intraven ous contrast. Coronal and sagittal reformatted images were also reviewed. FINDINGS: Brain: Extra-axial spaces: No abnormal extra-axial fluid collections. Ventricular system: Within normal limits Cerebral parenchyma: No acute intraparenchymal hemorrhage or mass effect. The delacruz-white junction is well differentiated. Cerebellum: Unremarkable. Mass effect: No evidence of midline shift. Intracranial vasculature: unremarkable Soft tissues: Normal. Calvarium/osseous structures: No depressed skull fracture. Paranasal sinuses and mastoid air cells: Clear. Visualized orbits: Orbital contents are intact. Cervical spine: Fracture: None. Osseous structures: Unremarkable Vertebral alignment: Within normal limits. Spinal canal/Neural Foramina: No evidence of significant spinal canal narrowing. Multilevel degenerat aman disc disease and endplate spondylosis Neck soft tissues: Prevertebral soft tissues are within normal limits. Other: The airway is patent. The lung apices are clear. IMPRESSION: No acute intracranial process. No evidence of cervical spine fracture. Moderate to severe multilevel degenerative disc disease.
[2024-02-29 14:08] LABS: Basophils % (A) 0 %; Eosinophils % (A) 0 %; HGB 15.2 gm/dL (13.0-17.5); Lymphocytes # (A) 1.1 k/uL (1.0-4.8); Lymphocytes % (A) 9 %; MCH 32.4 pg (25.0-35.0); MCHC 33.7 g/dL (31.0-37.0); Mean Platelet Volume 6.9; Monocytes # (A) 0.4 k/uL (0-1.0); Monocytes % (A) 4 %; Neutrophils % (A) 85 %; Platelet Count 247 k/uL (150-450); RBC 4.69 m/uL (4.30-5.90); RDW 12.1 % (11.5-15.5); WBC 11.7 k/uL (3.8-10.6)
[2024-02-29 14:15] LABS: INR 1.2 (<1.2); Partial Thromboplastin Time 23.7 sec (22.0-30.0); Prothrombin Time 12.5 sec (10.0-12.5)
[2024-02-29 14:20] LABS: ALT 48 U/L (4-49); AST 43 U/L (17-59); African American GFR (CKD) 73 (>60 ml/min/1.73 sqM); Albumin 4.7 g/dL (3.5-5.0); Alkaline Phosphatase 92 U/L (38-126); Anion Gap 8 mmol/L; Blood Urea Nitrogen 27 mg/dL (9-20); Calcium 9.2 mg/dL (8.4-10.2); Carbon Dioxide 24 mmol/L (22-30); Chloride 106 mmol/L (98-107); Glucose 165 mg/dL (74-99); Magnesium 2.3 mg/dL (1.6-2.3); Non-African American GFR(CKD) 63 (>60 ml/min/1.73 sqM); Potassium 4.5 mmol/L (3.5-5.1); Sodium 138 mmol/L (137-145); Total Bilirubin 1.6 mg/dL (0.2-1.3); Total Protein 7.4 g/dL (6.3-8.2)
[2024-02-29 15:39] VITALS: BP 130/72; PULSE 96; TEMP 98.1
== END 2024-02-29 15:40 | disposition home or self-care (01) ==
LOC: EC 11:30
DX: R55 Syncope and collapse (principal)
CPT/HCPCS: 36415; 70450; 71046; 72125; 80053; 83735; 84484; 85025; 85610; 85730; 93005; 99284

== ENCOUNTER → 2025-02-06 | Outpatient (CLI) | payer MEDICARE, BC ==
[2025-02-06 14:54] LABS: Basophils # (A) 0.04 X 10*3/uL (0.00-0.10); Basophils % (A) 0.5 %; Eosinophils # (A) 0.25 X 10*3/uL (0.04-0.35); Eosinophils % (A) 3.3 %; HCT 40.4 % (39.6-50.0); HGB 13.7 g/dL (13.0-17.0); Lymphocytes # (A) 1.14 X 10*3/uL (0.90-5.00); Lymphocytes % (A) 14.9 %; MCH 32.7 pg (27.0-32.0); MCHC 33.9 g/dL (32.0-37.0); MCV 96.4 FL (80.0-97.0); Monocytes # (A) 0.46 X 10*3/uL (0.20-1.00); NRBC Per 100 WBC 0 X 10*3/uL (0.00-0.01); Neutrophils # (A) 5.74 X 10*3/uL (1.80-7.70); Neutrophils % (A) 75.2 %; Platelet Count 234 X 10*3/uL (140-440); RBC 4.19 X 10*6/uL (4.40-5.60); RDW 12.4 % (11.5-14.5); WBC 7.64 X 10*3/uL (4.50-10.00)
[2025-02-06 15:43] LABS: ALT 43 U/L (10-49); AST 39 U/L (14-35); Albumin 4.2 g/dL (3.8-4.9); Albumin/Globulin Ratio 1.62 Ratio (1.60-3.17); Alkaline Phosphatase 88 U/L (41-126); BUN/Creat Ratio 21.82 Ratio (12.00-20.00); Calcium 9.1 mg/dL (8.7-10.3); Carbon Dioxide 21.4 mmol/L (21.6-31.8); Chloride 105 mmol/L (96-109); Chol/HDL Ratio 4.78 Ratio; Globulin 2.6 g/dL (1.6-3.3); Glucose 136 mg/dL (70-110); LDL Cholesterol,Calculated 60.7 mg/dL (0.0-131.0); Potassium 4.6 mmol/L (3.5-5.5); Prostate Specific Antigen 0.03 ng/mL (0.000-6.500); Sodium 138 mmol/L (135-145); Total Bilirubin 0.7 mg/dL (0.3-1.2); Total Protein 6.8 g/dL (6.2-8.2)
[2025-02-06 19:31] LABS: Appearance,Urine Turbid (Clear); Bilirubin,Urine Negative (Negative); Blood,Urine Negative (Negative); Color,Urine Yellow (Yellow); Ketones,Urine Trace (Negative); Nitrite,Urine Negative (Negative); PH, Urine 5.5; Specific Gravity,Urine 1.024 (1.001-1.030)
[2025-02-06 20:03] LABS: Bacteria,Urine None Seen (None Seen)
== END | disposition home or self-care (01) ==
LOC: LABWHC1 09:11
PROVIDERS: ATTEND Neurological Surgery
DX: Z00.00 Encounter for general adult medical examination without abnormal findings (principal); Z13.1 Encounter for screening for diabetes mellitus; I10 Essential (primary) hypertension; E78.2 Mixed hyperlipidemia; E55.9 Vitamin D deficiency, unspecified; R35.0 Frequency of micturition
CPT/HCPCS: 36415; 80053; 80061; 81001; 82306; 83036; 83735; 84153; 84443; 85025

== ENCOUNTER → 2025-03-05 | Outpatient (CLI) | payer MEDICARE, BC ==
[2025-03-05 14:53] LABS: Basophils # (A) 0.04 10*3/uL (0.00-0.10); Basophils % (A) 0.4 %; Eosinophils # (A) 0.13 10*3/uL (0.04-0.35); Eosinophils % (A) 1.2 %; HCT 40.1 % (39.6-50.0); HGB 14.1 g/dL (13.0-17.0); Lymphocytes # (A) 1.26 10*3/uL (0.90-5.00); Lymphocytes % (A) 12.1 %; MCH 33.7 pg (27.0-32.0); MCHC 35.2 g/dL (32.0-37.0); MCV 95.7 fL (80.0-97.0); Mean Platelet Volume 8.7 fL (9.5-12.2); Monocytes # (A) 0.48 10*3/uL (0.20-1.00); Monocytes % (A) 4.6 %; Neutrophils # (A) 8.48 10*3/uL (1.80-7.70); Neutrophils % (A) 81.5 %; Platelet Count 235 10*3/uL (140-440); RBC 4.19 10*6/uL (4.40-5.60); RDW 12.3 % (11.5-14.5); WBC 10.41 10*3/uL (4.50-10.00)
[2025-03-05 14:55] LABS: INR 1.1 (<1.2)
== END | disposition home or self-care (01) ==
LOC: LABPAT 13:38
PROVIDERS: ATTEND Neurological Surgery
DX: Z01.812 Encounter for preprocedural laboratory examination (principal)
CPT/HCPCS: 85025; 85610